=== PATIENT | female | born 1985 | race Caucasian/White ===

== ENCOUNTER 2018-12-26 06:18 | Inpatient (IN) | payer OTHER ==
[~2018-12-26] VITALS: Ht 165.1 cm; Wt 88.0 kg
[2018-12-26] MEDS ORDERED: FLUORESCEIN SODIUM 500 MG/5 ML ONE (06:48)
[2018-12-26] MEDS ORDERED: BUPIVACAINE/PF 0.25% ONE ×2 (06:48→09:14)
[2018-12-26] MEDS ORDERED: EPINEPHRINE 1 MG/ML, 1ML ONE ×2 (06:48→09:15)
[2018-12-26] MEDS ORDERED: LACTATED RINGERS 1,000 ML IV SCH (06:59)
[2018-12-26 07:02] VITALS: BP 138/93
[2018-12-26] MEDS ORDERED: VALA500T PO (07:21)
[2018-12-26] MEDS ORDERED: PHENAZOPYRIDINE 200 MG TABLET PO STA (07:48)
[2018-12-26] MEDS ORDERED: ACETAMINOPHEN 500 MG TABLET ONE (07:53)
[2018-12-26] MEDS ORDERED: SCOPOLAMINE PATCH, 1.5MG PATCH.TD72 TD ONE (07:54)
[2018-12-26] MEDS ORDERED: GABAPENTIN 300 MG CAPSULE ONE (07:54)
[2018-12-26] MEDS ORDERED: FENTANYL PF 250 MCG/5ML ONE (08:03)
[2018-12-26] MEDS ORDERED: MIDAZOLAM 1 MG/ML, 2ML ONE (08:03)
[2018-12-26] MEDS ORDERED: NEOSTIGMINE 1 MG/ML, 10ML ONE (08:10)
[2018-12-26] MEDS ORDERED: PROPOFOL 10 MG/ML, 20ML ONE (08:10)
[2018-12-26] MEDS ORDERED: DEXAMETHASONE 4 MG/ML, 1ML ONE (08:10)
[2018-12-26] MEDS ORDERED: ONDANSETRON 2MG/ML, 2ML ONE (08:10)
[2018-12-26] MEDS ORDERED: CEFAZOLIN 1,000 MG ONE (08:10)
[2018-12-26] MEDS ORDERED: GLYCOPYRROLATE 0.2MG/1ML, 5ML ONE (08:10)
[2018-12-26] MEDS ORDERED: ROCURONIUM 10 MG/ML,10ML ONE (08:10)
[2018-12-26] MEDS ORDERED: PROMETHAZINE 25 MG/ML, 1ML IV PRN (08:30)
[2018-12-26] MEDS ORDERED: LABETALOL 5MG/ML, 20ML IV PRN (08:30)
[2018-12-26] MEDS ORDERED: OXYcodone 5 MG/5 ML ORAL.SOL UDC PO PRN (08:30)
[2018-12-26] MEDS ORDERED: hydrALAzine 20 MG/ML, 1ML IV PRN (08:30)
[2018-12-26] MEDS ORDERED: HYDROmorphone 2 MG/ML, 1ML IVPush PRN (08:30)
[2018-12-26] MEDS ORDERED: ALBUTEROL SULFATE 2.5 MG/3 ML NPPB PRN (08:30)
[2018-12-26] MEDS ORDERED: FENTANYL PF 100 MCG/2ML IV PRN (08:30)
[2018-12-26] MEDS ORDERED: HALOPERIDOL 5 MG/ML IV PRN (08:30)
[2018-12-26] MEDS ORDERED: MEPERIDINE/PF 50 MG/ML ONE (10:05)
[2018-12-26] MEDS ORDERED: HYDROmorphone 1 MG/ML, 1ML ONE (10:53)
[2018-12-26] MEDS ORDERED: OXYcodone 5 MG/5 ML ORAL.SOL UDC ONE (10:53)
[2018-12-26] MEDS ORDERED: KETOROLAC 30 MG/1 ML ONE (11:12)
[2018-12-26] MEDS ORDERED: KETOROLAC 30 MG/1 ML IVPush ONE (11:30)
[2018-12-26 12:00] VITALS: BP 109/76
[2018-12-26] MEDS ORDERED: ONDANSETRON 2MG/ML, 2ML IV PRN (13:30)
[2018-12-26] MEDS ORDERED: HYDROmorphone 2 MG/ML, 1ML IV PRN (13:30)
[2018-12-26] MEDS ORDERED: MEPERIDINE/PF 100 MG/ML IM PRN (13:30)
[2018-12-26] MEDS: POTASSIUM CHLORIDE 20 MEQ in D5%-LACTATED RINGERS 1,000 ML IV SCH ×2 (14:27→22:46)
[2018-12-26] MEDS: KETOROLAC 30 MG/1 ML IV SCH ×2 (15:55→21:51)
[2018-12-26] MEDS: SIMETHICONE 80 MG CHEW TAB PO SCH ×2 (15:55→21:51)
[2018-12-26] MEDS ORDERED: CEFAZOLIN PMX 2GM/50ML 50 ML IVPB SCH (16:00)
[2018-12-26 20:38] VITALS: BP 103/65
[2018-12-26] MEDS: OXYcodone 5 MG/5 ML ORAL.SOL UDC PO PRN (22:45)
[2018-12-27 00:43] VITALS: BP 91/53
[2018-12-27 04:22] VITALS: BP 97/59
[2018-12-27] MEDS: KETOROLAC 30 MG/1 ML IV SCH ×2 (04:52→09:56)
[2018-12-27] MEDS: POTASSIUM CHLORIDE 20 MEQ in D5%-LACTATED RINGERS 1,000 ML IV SCH (05:40)
[2018-12-27 06:44] VITALS: BP 102/62
[2018-12-27] MEDS: SIMETHICONE 80 MG CHEW TAB PO SCH (07:31)
[2018-12-27] MEDS: OXYcodone 5 MG/5 ML ORAL.SOL UDC PO PRN (07:31)
[2018-12-27 12:14] VITALS: BP 93/58
[2018-12-27] MEDS ORDERED: IBUPROFEN 600 MG TABLET PO SCH (16:00)
== END 2018-12-27 13:15 | disposition home or self-care (01) | DRG 743 ==
LOC: OUT 06:18 → 4NOR 11:43 → OUT 12:19 → DCLOUNGE 12-27 13:02
PROVIDERS: ADMIT Specialist; ATTEND Specialist
PROC: 0UT7FZZ Resection of Bilateral Fallopian Tubes, Via Natural or Artificial Opening With Percutaneous Endoscopic Assistance (ICD-10-PCS; 2018-12-26)
PROC: 0UT2FZZ Resection of Bilateral Ovaries, Via Natural or Artificial Opening With Percutaneous Endoscopic Assistance (ICD-10-PCS; 2018-12-26)
PROC: 0TJB8ZZ Inspection of Bladder, Via Natural or Artificial Opening Endoscopic (ICD-10-PCS; 2018-12-26)
PROC: 0UT9FZL Resection of Uterus, Supracervical, Via Natural or Artificial Opening With Percutaneous Endoscopic Assistance (ICD-10-PCS; principal; 2018-12-26 08:00)
DX: N94.6 Dysmenorrhea, unspecified (principal); E28.2 Polycystic ovarian syndrome; N85.4 Malposition of uterus; L68.0 Hirsutism; Z88.6 Allergy status to analgesic agent; Z81.8 Family history of other mental and behavioral disorders; Z98.891 History of uterine scar from previous surgery; Z98.51 Tubal ligation status
CPT/HCPCS: 36415; J3490; J7121; 81025; 85014; 85018; 88307; G0378; J0171; J0690; J1100; J1170; J1885; J2175; J2250; J2405; J2704; J2710; J3010; J3480; J7120

== ENCOUNTER 2018-12-30 14:49 | Emergency (ER) | payer OTHER ==
[~2018-12-30] VITALS: Ht 165.1 cm; Wt 81.6 kg
[~2018-12-30 14:49] MED LIST: VALA500T PO
[2018-12-30] MEDS ORDERED: PROCHLORPERAZINE 5 MG/ML, 2ML IVPush ONE (16:00)
[2018-12-30] MEDS ORDERED: SODIUM CHLORIDE FLUSH 10ML SYR IVF ONE (16:00)
[2018-12-30] MEDS ORDERED: SODIUM CHLORIDE 0.9% 1,000ML IVBOLUS ONE (16:00)
[2018-12-30] MEDS ORDERED: PROCHLORPERAZINE 5 MG/ML, 2ML ONE (16:01)
[2018-12-30 16:05] LABS: MICROSCOPIC AUTO
[2018-12-30 16:06] LABS: CULTURE INDICATED? YES
--- NOTE | 2018-12-30 16:11 | NUR ---
SURGEON AT BEDSIDE. PIV STARTED WITH FLUIDS. PT MEDICATED PER EMAR FOR NAUSEA
[2018-12-30 16:21] LABS: BASOPHILS # (AUTO) 0.02 x10^3/uL (0-0.1); BASOPHILS % (AUTO) 0 % (0-1); EOSINOPHILS # (AUTO) 0.27 x10^3/uL (0-0.4); EOSINOPHILS % (AUTO) 3 % (1-7); LYMPHOCYTES # (AUTO) 1.34 x10^3/uL (1-3.4); LYMPHOCYTES % (AUTO) 16 % (22-44); MD NO; MEAN CORPUSCULAR HEMOGLOBIN 32.4 pg (27.0-34.8); MEAN CORPUSCULAR HGB CONC 34.6 g/dL (32.4-35.8); MEAN CORPUSCULAR VOLUME 93.9 fL (80-100); MEAN PLATELET VOLUME 8.2 fL (7.4-10.4); MONOCYTES # (AUTO) 0.31 x10^3/uL (0.2-0.8); MONOCYTES % (AUTO) 4 % (2-9); NEUTROPHILS # (AUTO) 6.28 x10^3/uL (1.8-6.8); NEUTROPHILS % (AUTO) 77 % (42-75); PLATELET COUNT 298 x10^3/uL (130-400); RED BLOOD COUNT 4.29 x10^6/uL (3.82-5.3); RED CELL DISTRIBUTION WIDTH 12.7 % (9.6-15.2)
[2018-12-30 16:22] VITALS: BP 111/60
--- NOTE | 2018-12-30 16:22 | NUR ---
pt is very anxious. stating she is "still nauseous, having hot flashes, and is extremely uncomfortable". dr dawson notified
[2018-12-30 16:26] LABS: ALANINE AMINOTRANSFERASE 15 U/L (12-78); ALBUMIN 3.7 g/dL (3.4-5.0); ANION GAP 5 mmol/L (5-15); CALCIUM 9.1 mg/dL (8.5-10.1); CHLORIDE 105 mmol/L (98-107); CREATININE 0.77 mg/dL (0.55-1.02)
[2018-12-30 16:28] LABS: ALKALINE PHOSPHATASE 77 U/L (45-117); BILIRUBIN,TOTAL 0.7 mg/dL (0.2-1.0); TOTAL PROTEIN 7.6 g/dL (6.4-8.2)
[2018-12-30] MEDS ORDERED: LORazepam 1MG TABLET PO ONE (16:30)
[2018-12-30] MEDS ORDERED: SCOPOLAMINE PATCH, 1.5MG PATCH.TD72 TD ONE (16:30)
[2018-12-30] MEDS ORDERED: LORazepam 1MG TABLET ONE (16:58)
--- NOTE | 2018-12-30 17:00 | NUR ---
requesting med from pharmacy
--- NOTE | 2018-12-30 17:40 | NUR ---
PTS CHART UP FOR RECHECK
== END 2018-12-30 18:18 | disposition home or self-care (01) ==
LOC: ED 15:39
DX: R10.84 Generalized abdominal pain (principal); R11.2 Nausea with vomiting, unspecified; Z90.710 Acquired absence of both cervix and uterus
CPT/HCPCS: 36415; 74021; 80053; 81001; 83690; 85025; 87086; 96361; 96374; 99284; J0780; J7030